=== PATIENT | male | born 1995 | race African-American/Black ===

== ENCOUNTER 2022-08-07 10:15 | Emergency (ER) | payer SELFPAY ==
[~2022-08-07] VITALS: Ht 170.2 cm; Wt 82.0 kg
[2022-08-07] MEDS ORDERED: ETOMIDATE 2MG/ML 10ML VIAL IV ONE (11:15)
[2022-08-07] MEDS ORDERED: KETOROLAC 30MG/ML VIAL IV ONE (11:15)
[2022-08-07] MEDS ORDERED: SODIUM CHLORIDE 0.9% 1,000 ML IV ONE (11:15)
[2022-08-07] MEDS ORDERED: TETANUS, DIPHTHERIA, PERTUSSIS VAC/PF 0.5ML (>10YR OLD) IM ONE (12:45)
[2022-08-07] MEDS ORDERED: AMOX1TAB16 MT (16:04)
[2022-08-07 16:17] VITALS: BP 129/70
== END 2022-08-07 17:13 | disposition home or self-care (01) ==
LOC: EDBD 10:15 → ER 10:15
DX: S43.005A Unspecified dislocation of left shoulder joint, initial encounter (principal); S09.90XA Unspecified injury of head, initial encounter; X58.XXXA Exposure to other specified factors, initial encounter; Y93.89 Activity, other specified; Y92.89 Other specified places as the place of occurrence of the external cause; Y99.8 Other external cause status; S61.452A Open bite of left hand, initial encounter; W50.3XXA Accidental bite by another person, initial encounter
CPT/HCPCS: 23650; 73020; 73030; 90471; 90715; 96361; 96374; 99152; 99285; J1885; J3490; J7030; A4565